=== PATIENT | male | born 1985 | race Caucasian/White ===

== ENCOUNTER 2018-11-24 09:24 | Day surgery (SDC) | payer BC ==
[~2018-11-24 09:24] MED LIST: DESFLURANE 15 MIN
[2018-11-24] MEDS: SOD CHLORIDE 0.9% 1,000 ML IV (10:25)
[2018-11-24] MEDS ORDERED: CEFAZOLIN 2 GM/50 ML (PMX) 50 ML IVPB (11:30)
[2018-11-24] MEDS ORDERED: KETOROLAC 30 MG INJ (12:15)
[2018-11-24] MEDS ORDERED: CEFAZOLIN 1 GM INJ (12:15)
[2018-11-24] MEDS ORDERED: PROPOFOL 20 ML (12:15)
[2018-11-24] MEDS ORDERED: MIDAZOLAM 1 MG/ML 2 ML INJ (12:15)
[2018-11-24] MEDS ORDERED: ONDANSETRON 4 MG INJ (12:15)
[2018-11-24] MEDS ORDERED: ROCURONIUM 50 MG INJ (12:15)
[2018-11-24] MEDS ORDERED: BUPIVACAINE 0.25% (MPF) 30 ML INJ (12:16)
[2018-11-24] MEDS ORDERED: OXYCODONE/ACETAMINOPHEN (5/325) TAB PO (12:30)
[2018-11-24] MEDS ORDERED: FENTAnyl 50 MCG/ML VIAL IV (12:30)
[2018-11-24] MEDS ORDERED: HYDROmorphONE 1 MG/5 ML IV SYRINGE IV (12:30)
[2018-11-24] MEDS ORDERED: NEOSTIGMINE 3 MG/3 ML SYRINGE (12:46)
[2018-11-24] MEDS ORDERED: GLYCOPYRROLATE 0.4 MG INJ (12:46)
[2018-11-24] MEDS: POLYMYXIN/BACITRACIN 1L IRRIG IRR ×2 (12:56)
[2018-11-24] MEDS: BUPIVACAINE 0.25% (MPF) 30 ML INJ INJ ×2 (12:56)
[2018-11-24] MEDS: HYDROCODONE/APAP (5/325) TAB PO (13:30)
[2018-11-24] MEDS: ONDANSETRON 4 MG INJ IV (13:30)
== END 2018-11-24 16:15 | disposition home or self-care (01) ==
LOC: SDS 09:24
DX: K40.30 Unilateral inguinal hernia, with obstruction, without gangrene, not specified as recurrent (principal)
CPT/HCPCS: 49507